=== PATIENT | female | born 1985 ===

== ENCOUNTER 2021-04-20 22:45 | Emergency (ER) | payer SELFPAY ==
[2021-04-20 22:54] VITALS: BP 131/97
[2021-04-20] MEDS ORDERED: ASPIRIN 325 MG TAB PO ONE (22:54)
[2021-04-20 23:18] LABS: Basophils % (Auto) 0.2 % (0.0-1.8); Eosinophils % (Auto) 0.6 % (0.0-4.3); Hematocrit 37.2 % (30.3-42.9); Hemoglobin 12.6 gm/dl (10.1-14.3); Lymphocytes # (Auto) 2.3 K/mm3 (1.2-5.4); Lymphocytes % (Auto) 38.9 % (13.4-35.0); Mean Corpuscular HGB Conc 34 % (30-34); Mean Corpuscular Volume 83 fl (79-97); Monocytes # (Auto) 0.5 K/mm3 (0.0-0.8); Monocytes % (Auto) 8.4 % (0.0-7.3); Platelet Count 336 K/mm3 (140-440); Red Blood Count 4.47 M/mm3 (3.65-5.03); Red Cell Distribution Width 14.8 % (13.2-15.2)
[2021-04-20 23:43] LABS: Alanine Aminotransferase 32 units/L (7-56); Albumin 4.1 g/dL (3.9-5); BUN/Creatinine Ratio 8; Blood Urea Nitrogen 7 mg/dL (7-17); Hemolysis Index 5
--- NOTE | 2021-04-21 14:11 | Electrocardiograph Report ---
[facility] Test Date: 2021-04-20 Test Time: 23:03:23 Pat Name: EVETTE GARNETT Department: Room: Gender: F Trading Manager: CHUYITA : 1985 Requested By: CAMACHO HDEZ III Order Number: [id number] Reading MD: Darius Collado Measurements Intervals [place] Rate: 95 P: 64 MO: 156 QRS: 28 QRSD: 74 T: 9 QT: 362 QTc: 455 Interpretive Statements Sinus rhythm Normal ECG No previous ECG available for comparison Electronically Signed On 04-21-2021 14:11:18 EDT by Darius Collado
== END 2021-04-20 22:55 | disposition left against medical advice (07) ==
LOC: ED 22:45
DX: R07.89 Other chest pain (principal); Z53.21 Procedure and treatment not carried out due to patient leaving prior to being seen by health care provider
CPT/HCPCS: 36415; 80053; 84484; 84703; 85025; 93005